=== PATIENT | male | born 1960 | race Caucasian/White ===

== ENCOUNTER 2023-08-13 21:57 | Emergency (ER) | payer MEDICAID ==
[2023-08-13] MEDS ORDERED: Mineral Oil ENEMA ONE (22:57)
== END 2023-08-14 00:30 | disposition home or self-care (01) ==
LOC: CSHERS 21:57
DX: K59.00 Constipation, unspecified (principal); F17.210 Nicotine dependence, cigarettes, uncomplicated
CPT/HCPCS: 99283